=== PATIENT | female | born 1980 | race Hispanic/Latino ===

== ENCOUNTER 2024-03-25 12:36 | Emergency (ER) | payer SELFPAY ==
[~2024-03-25] VITALS: Ht 162.6 cm; Wt 77.8 kg
[2024-03-25] MEDS: HYDROCODONE/APAP 5MG-325MG TAB PO ONE (13:09)
[2024-03-25 13:45] VITALS: O2SAT 97
== END 2024-03-25 13:45 | disposition home or self-care (01) ==
LOC: FSED 12:56
DX: Z47.89 Encounter for other orthopedic aftercare (principal); S52.591D Other fractures of lower end of right radius, subsequent encounter for closed fracture with routine healing
CPT/HCPCS: 99283

== ENCOUNTER 2024-03-25 16:48 | Observation (INO) | payer SELFPAY ==
[~2024-03-25] VITALS: Ht 162.6 cm; Wt 77.6 kg
[~2024-03-25 16:48] MED LIST: EPINEPHRINE HCL 1:1000 1ML 1 MG/ML AMP ONE; ROPIVACAINE 0.5% 5 MG/ML 30 ML SDV ONE
[2024-03-25 17:21] LABS: BASOPHILS % 0.1 % (0.0-1.0); EOSINOPHILS % 0.2 % (0.0-6.0); HEMATOCRIT 39.3 % (34.2-44.1); HEMOGLOBIN 12.5 g/dL (12.0-16.0); LYMPHOCYTES # (AUTO) 1.8 (1.0-3.2); LYMPHOCYTES % 21.9 % (18.0-39.1); MEAN CORPUSCULAR HEMOGLOBIN 25.6 pg (28-32); MEAN CORPUSCULAR HGB CONC 31.8 g/dL (31-35); MEAN CORPUSCULAR VOLUME 80.5 fL (81-99); MONOCYTES # (AUTO) 0.6 (0.2-0.8); MONOCYTES % 7.1 % (4.4-11.3); NEUTROPHILS # (AUTO) 5.9 (2.1-6.9); NEUTROPHILS % 70.3 % (38.7-80.0); PLATELET COUNT 297 x10e3/uL (140-360); RED BLOOD COUNT 4.88 x10e6/uL (3.6-5.1); WHITE BLOOD COUNT 8.35 x10e3/uL (4.8-10.8)
[2024-03-25 17:35] LABS: INR 0.92
[2024-03-25 17:36] LABS: PARTIAL THROMBOPLASTIN TIME 27.1 seconds (23.8-35.5)
[2024-03-25 17:47] LABS: ALBUMIN 4.3 g/dL (3.5-5.0); ALBUMIN/GLOBULIN RATIO 1.1 (0.8-2.0); ANION GAP 14.7 mmol/L (8-16); BILIRUBIN,TOTAL 0.2 mg/dL (0.2-1.2); CREATININE, SERUM 0.73 mg/dL (0.57-1.11); POTASSIUM 3.7 mmol/L (3.5-5.1); TOTAL PROTEIN 8.2 g/dL (6.5-8.1)
[2024-03-25] MEDS: SODIUM CHLORIDE 0.9% 1000ML 1,000 ML IV SCH (17:52)
[2024-03-25] MEDS: Morphine 4mg INJECTION 4 MG/ML INJ IV STA (18:44)
[2024-03-25] MEDS: ONDANSETRON HCL INJ 2MG/ML 2ML 2 MG/ML VIAL IV STA (18:45)
[2024-03-25 20:00] VITALS: BP 118/82; PULSE 70; RESP 18; TEMP 97.8; O2SAT 100
[2024-03-25] MEDS: HYDROCODONE/APAP 5MG-325MG TAB PO PRN (20:37)
[2024-03-25 22:25] VITALS: BP 118/74; PULSE 70; RESP 18; TEMP 97.8; O2SAT 100
[2024-03-25] MEDS: ONDANSETRON HCL INJ 2MG/ML 2ML 2 MG/ML VIAL IV PRN (23:47)
[2024-03-25] MEDS: Morphine 4mg INJECTION 4 MG/ML INJ IV PRN (23:47)
[2024-03-26] VITALS (8 sets, daily range): BP systolic 118–136; BP diastolic 74–90; PULSE 69–83; RESP 16–18; TEMP 97.8–98.2; O2SAT 97–100
[2024-03-26] MEDS ORDERED: MELATONIN 5 MG TABLET PO PRN (01:15)
[2024-03-26] MEDS ORDERED: ALBUTEROL/IPRATROPIUM 3 ML NEB NEB PRN (01:15)
[2024-03-26] MEDS ORDERED: POTASSIUM CHLORIDE 20 MEQ TAB CR PO PRN (01:15)
[2024-03-26] MEDS ORDERED: LIDOCAINE 4% PATCH TP PRN (01:15)
[2024-03-26] MEDS ORDERED: BENZONATATE 100 MG CAP PO PRN (01:15)
[2024-03-26] MEDS ORDERED: HYDRALAZINE HCL 20 MG/ML VIAL IV PRN (01:15)
[2024-03-26] MEDS ORDERED: DOCUSATE SODIUM 100 MG CAP PO PRN (01:15)
[2024-03-26] MEDS ORDERED: DIPHENHYDRAMINE HCL 25 MG CAP PO PRN (01:15)
[2024-03-26] MEDS ORDERED: SIMETHICONE 80 MG CHEW PO PRN (01:15)
[2024-03-26] MEDS ORDERED: ACETAMINOPHEN 325 MG TAB PO PRN (01:15)
[2024-03-26] MEDS ORDERED: DEXTROSE 50% SYRINGE 50 ML IV PRN (01:15)
[2024-03-26] MEDS: Morphine 2mg Syringe 2 MG/ML SYR IV PRN (03:50)
[2024-03-26 05:55] LABS: BASOPHILS % 0.1 % (0.0-1.0); EOSINOPHILS # (AUTO) 0.1 (0.0-0.4); EOSINOPHILS % 1.3 % (0.0-6.0); HEMATOCRIT 33.8 % (34.2-44.1); HEMOGLOBIN 11.3 g/dL (12.0-16.0); LYMPHOCYTES # (AUTO) 1.5 (1.0-3.2); MEAN CORPUSCULAR HEMOGLOBIN 26.1 pg (28-32); MEAN CORPUSCULAR HGB CONC 33.4 g/dL (31-35); MEAN CORPUSCULAR VOLUME 78.1 fL (81-99); MONOCYTES # (AUTO) 0.7 (0.2-0.8); MONOCYTES % 9.6 % (4.4-11.3); NEUTROPHILS # (AUTO) 4.7 (2.1-6.9); NEUTROPHILS % 67.7 % (38.7-80.0); PLATELET COUNT 243 x10e3/uL (140-360); RED BLOOD COUNT 4.33 x10e6/uL (3.6-5.1); RED CELL DISTRIBUTION WIDTH 15.1 % (11.7-14.4); WHITE BLOOD COUNT 6.99 x10e3/uL (4.8-10.8)
[2024-03-26 06:21] LABS: ANION GAP 11.8 mmol/L (8-16); CALCIUM 8.1 mg/dL (8.4-10.2); CREATININE, SERUM 0.63 mg/dL (0.57-1.11); POTASSIUM 3.8 mmol/L (3.5-5.1)
[2024-03-26] MEDS: PANTOPRAZOLE SOD 40 MG TABEC PO SCH (07:30)
[2024-03-26] MEDS ORDERED: SODIUM CHLORIDE 0.9% 1000ML 1,000 ML ONE (07:56)
[2024-03-26] MEDS ORDERED: Morphine 2mg Syringe 2 MG/ML SYR ONE (08:40)
[2024-03-26] MEDS: KETOROLAC TROMETHAMINE 30 MG/ML VIAL IV PRN (11:17)
[2024-03-26] MEDS ORDERED: KETOROLAC TROMETHAMINE 30 MG/ML VIAL ONE (11:19)
[2024-03-26] MEDS ORDERED: DEXAMETHASONE SOD PHOS INJ 4 MG/ML SDV ONE (12:55)
[2024-03-26] MEDS ORDERED: PROPOFOL IV EMULSION 10 MG/ML 20 ML VIAL ONE (12:55)
[2024-03-26] MEDS ORDERED: LIDOCAINE HCL 2% LOCAL INJ 5 ML SDV VIAL INJ ONE (12:55)
[2024-03-26] MEDS ORDERED: ONDANSETRON HCL INJ 2MG/ML 2ML 2 MG/ML VIAL ONE (12:55)
[2024-03-26] MEDS ORDERED: SEVOFLURANE INHAL SOLN 250 ML PEN BTL ONE (12:55)
[2024-03-26] MEDS ORDERED: FENTANYL CITRATE/PF 100MCG/2 ML INJ ONE ×2 (13:02→13:16)
[2024-03-26] MEDS ORDERED: MIDAZOLAM HCL 2 MG/2 ML VIAL ONE (13:02)
[2024-03-26] MEDS ORDERED: Vancomycin IV 1 GM VIAL ONE (13:03)
[2024-03-26] MEDS ORDERED: BUPIVACAINE HCL 0.5% INJ 30 ML VIAL INJ ONE (13:03)
[2024-03-26] MEDS ORDERED: ENOXAPARIN SOD INJ 40 MG/0.4 ML SYR SC SCH (17:00)
[2024-03-27] VITALS (8 sets, daily range): BP systolic 112–127; BP diastolic 70–81; PULSE 78–95; RESP 17–19; TEMP 98.1–99.2; O2SAT 96–100
[2024-03-27 15:39] LABS: ANION GAP 14.4 mmol/L (8-16); CALCIUM 8.4 mg/dL (8.4-10.2); CREATININE, SERUM 0.65 mg/dL (0.57-1.11)
[2024-03-27 15:46] LABS: POTASSIUM 3.4 mmol/L (3.5-5.1)
[2024-03-27] MEDS ORDERED: ONDANSETRON HCL 4 MG ORAL DISINTEGRATING TAB PO PRN (17:15)
== END 2024-03-27 17:15 | disposition home or self-care (01) ==
LOC: ER 16:59 → ERHOLD 18:25 → MED/SURG3 20:15
PROVIDERS: ADMIT Internal Medicine; ATTEND Internal Medicine
DX: S52.571A Other intraarticular fracture of lower end of right radius, initial encounter for closed fracture (principal); E66.01 Morbid (severe) obesity due to excess calories; Z68.29 Body mass index [BMI] 29.0-29.9, adult; Z11.52 Encounter for screening for COVID-19; W18.39XA Other fall on same level, initial encounter
CPT/HCPCS: 25609; 36415 ×3; 71046; 80048 ×2; 80053; 83880; 84702; 85014; 85025 ×2; 85610; 85730; 86850; 86900; 93005; 94799 ×2; 99284; C1713 ×11; G0378 ×3; J0171; J0690; J1100; J1885; J2001; J2250; J2270 ×2; J2405; J2704; J2795; J3010; J3370; J7030; S0164; U0002; 76000